=== PATIENT | male | born 1975 | race Caucasian/White ===

== ENCOUNTER 2017-07-29 07:29 | Emergency (ER) | payer OTHER ==
[2017-07-29 07:54] VITALS: BP 110/78
--- NOTE | 2017-07-29 08:03 | UC ---
Abdominal Pain Male HPI - HPI Summary HPI Summary: 42 year old male with concerns of diarrhea. "Feel out of sorts" and diarrhea for two days. 07/25/17 [facility] ED visit for posterior head and neck pain with vision disturbance: IV magnesium and normal CT. 07/28/17: [facility] visit with x-rays for jaw and dental pain for one to two days. He feels he has a dental abscess starting which causes migraines and that has happened in the past. has zomig for migraine and not working great,. no fever. no vomiting. [ End ] - History of Current Complaint Chief Complaint: UCGeneralIllness Stated Complaint: LEFT SIDE GLANDS, DIARRHEA Time Seen by Provider: 07/29/17 07:54 Hx Obtained From: Patient Onset/Duration: Gradual Onset Timing: Constant Severity Initially: Mild Severity Currently: Moderate Pain Intensity: 0 - Allergies/Home Medications Allergies/Adverse Reactions: Allergies Allergy/AdvReac Type Severity Reaction Status Date / Time bupropion [From Wellbutrin] Allergy "Overwhelming Verified 07/29/17 07:46 Panic" fentanyl Allergy Itching Verified 07/29/17 07:46 metoclopramide [From Reglan] Allergy "Overwhelming Verified 07/29/17 07:46 Panic" prochlorperazine Allergy "Overwhelming Verified 07/29/17 07:46 Panic" tomato Allergy Migraines Verified 07/29/17 07:46 Home Medications: Home Medications Acetaminophen [Acetaminophen Extra Strength] 500 - 1,000 mg PO Q6H PRN 07/29/17 [History Confirmed 07/29/17] Ascorbic Acid TAB* [Vitamin C TAB*] 500 mg PO DAILY 07/29/17 [History Confirmed 07/29/17] Citalopram TAB* [CeleXA TAB*] 20 mg PO DAILY 07/29/17 [History Confirmed ] Levothyroxine TAB* [Synthroid TAB*] 100 mcg PO DAILY 07/29/17 [History Confirmed 07/29/17] OLANzapine TAB* [Zyprexa 5 MG TAB*] 5 mg PO BEDTIME 07/29/17 [History Confirmed 07/29/17] Propranolol HCl [Propranolol HCl ER] 160 mg PO DAILY 07/29/17 [History Confirmed 07/29/17] ZOLMitriptan [Zomig] 5 mg PO SEE INSTRUCTIONS PRN 07/29/17 [History Confirmed ] amLODIPine TAB* [Norvasc 5 mg TAB*] 2.5 mg PO DAILY 07/29/17 [History Confirmed 07/29/17] clonazePAM TAB(*) [KlonoPIN TAB(*)] 1 mg PO BID 07/29/17 [History Confirmed ] PMH/Surg Hx/FS Hx/Imm Hx Previously Healthy: Yes Psychological History: Anxiety, Depression, Bipolar Disorder - Surgical History Surgical History: None - Family History Known Family History: Positive: None - Social History Lives: With Family Alcohol Use: None Substance Use Type: Prescribed Smoking Status (MU): Former Smoker When Did the Patient Quit Smoking/Using Tobacco: 2000 - Immunization History Most Recent Influenza Vaccination: 2011 Most Recent Tetanus Shot: 2008 Most Recent Pneumonia Vaccination: none Review of Systems ENT: Dental Pain Neurological: Headache Is Patient Immunocompromised?: No All Other Systems Reviewed And Are Negative: Yes Physical Exam Triage Information Reviewed: Yes Appearance: Well-Appearing, No Pain Distress, Well-Nourished Vital Signs: Initial Vital Signs Temp 98.1 F 07/29/17 07:49 Pulse 76 07/29/17 07:49 Resp 16 07/29/17 07:49 BP 110/78 07/29/17 07:49 Pulse Ox 99 07/29/17 07:49 Vital Signs Reviewed: Yes Eye Exam: Normal ENT Exam: Normal Dental: Positive: Percussion Tenderness @, Gross Decay/Caries @. Negative: Cervical Lymphadenopathy, Bleeding Neck exam: Normal Neck: Positive: 1 Respiratory Exam: Normal Cardiovascular Exam: Normal Musculoskeletal Exam: Normal Neurological Exam: Normal Psychological Exam: Normal Skin Exam: Normal Abd Pain Male Course/Dx - Course Course Of Treatment: migraine : cont with PO intake, zomig, start OTC Mag. dental pain: cont APAP-- motrin causing upset stomach, start amox if sx worsen - - he is aware of risks of amox like GI upset, c diff, etc and he is well aware and will start abx if dental pain worsens / persist and f/u with PCP and dentist - Differential Dx/Clinical Impression Provider Diagnoses: migraine. dental pain / abcess Discharge - Sign-Out/Discharge Documenting (check all that apply): Discharge/Admit/Transfer - Discharge Plan Condition: Good Disposition: HOME Prescriptions: Amoxicillin 500 mg PO TID 7 Days #21 capsule Patient Education Materials: Migraine Headache (ED), Dental Abscess (ED) Referrals: KATHLEEN aFir [Primary Care Provider] - 3 Days Additional Instructions: As we discussed if your dental pain worsens then please start the antibiotics - Billing Disposition and Condition Condition: GOOD Disposition: Home Images Dental: 1 - dental filling. tenderness to palpation. 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
== END 2017-07-29 08:09 | disposition home or self-care (01) ==
LOC: UCCORT 07:29
DX: G43.909 Migraine, unspecified, not intractable, without status migrainosus (principal); K08.89 Other specified disorders of teeth and supporting structures; K04.7 Periapical abscess without sinus; Z88.4 Allergy status to anesthetic agent; Z88.8 Allergy status to other drugs, medicaments and biological substances; Z91.018 Allergy to other foods
CPT/HCPCS: 99212; G0463

== ENCOUNTER 2017-11-08 07:01 | Emergency (ER) | payer OTHER ==
[2017-11-08 07:18] VITALS: BP 107/70
--- NOTE | 2017-11-08 07:32 | UC ---
Dental HPI - HPI Summary HPI Summary: 42-year-old male comes in with a question about a recent tooth extraction. On November 03, 2017 he had a left lower molar extracted due to decay. That tooth had been hurting. The dentist removed it and the patient's been caring for a socket with salt water gargles and eating on the opposite side. Patient noticed that the blood clot that was in the socket was going away. At its pain replaced by white tissue. It is essentially not painful. He called the dentist but there is no dentist available for another 5-6 days and so he came here to clinic to get it evaluated. He is on amoxicillin 500 mg 3 times a day. No fevers feels well otherwise. - History of Current Complaint Chief Complaint: UCDentalProblem Stated Complaint: DENTAL COMP Time Seen by Provider: 11/08/17 07:15 Pain Intensity: 0 - Allergies/Home Medications Allergies/Adverse Reactions: Allergies Allergy/AdvReac Type Severity Reaction Status Date / Time bupropion [From Wellbutrin] Allergy "Overwhelming Verified 11/08/17 07:15 Panic" fentanyl Allergy Itching Verified 11/08/17 07:15 metoclopramide [From Reglan] Allergy "Overwhelming Verified 11/08/17 07:15 Panic" prochlorperazine Allergy "Overwhelming Verified 11/08/17 07:15 Panic" tomato Allergy Migraines Verified 11/08/17 07:15 Home Medications: Home Medications Ibuprofen TAB* [Motrin TAB* 600 MG] 600 mg PO Q6H PRN 11/08/17 [History Confirmed 11/08/17] PMH/Surg Hx/FS Hx/Imm Hx Endocrine History: Thyroid Disease - Surgical History Surgical History: Yes Surgery Procedure, Year, and Place: dental surgery 10/2017 - Family History Known Family History: Positive: None - Social History Alcohol Use: None Substance Use Type: None Smoking Status (MU): Former Smoker When Did the Patient Quit Smoking/Using Tobacco: 2000 - Immunization History Most Recent Influenza Vaccination: 2011 Most Recent Tetanus Shot: 2008 Most Recent Pneumonia Vaccination: none Review of Systems Constitutional: Negative Skin: Negative Eyes: Negative ENT: Dental Pain Respiratory: Negative Cardiovascular: Negative Gastrointestinal: Negative Motor: Negative Neurovascular: Negative Musculoskeletal: Negative Neurological: Negative Psychological: Negative Is Patient Immunocompromised?: No All Other Systems Reviewed And Are Negative: Yes Physical Exam Triage Information Reviewed: Yes Appearance: Well-Appearing, No Pain Distress, Well-Nourished Vital Signs: Initial Vital Signs Temp 97.3 F 11/08/17 07:12 Pulse 73 11/08/17 07:12 Resp 18 11/08/17 07:12 BP 107/70 11/08/17 07:12 Pulse Ox 96 11/08/17 07:12 Vital Signs Reviewed: Yes Eye Exam: Normal Eyes: Positive: Conjunctiva Clear ENT Exam: Normal ENT: Positive: Other - Left lower jaw shows an open socket there is a partial blood clot and some white tissue which appears to be granulation tissue. There is no gingival swelling no drainage. Neck exam: Normal Neck: Positive: Supple Respiratory: Positive: No respiratory distress Musculoskeletal Exam: Normal Musculoskeletal: Positive: Strength Intact, ROM Intact Neurological Exam: Normal Neurological: Positive: Alert Psychological Exam: Normal Psychological: Positive: Normal Response To Family, Age Appropriate Behavior Skin Exam: Normal Dental Complaint Course/Dx - Differential Dx/Diagnosis Provider Diagnoses: TOOTH EXTRACTION Discharge - Sign-Out/Discharge Documenting (check all that apply): Patient Departure All imaging exams completed and their final reports reviewed: No Studies - Discharge Plan Condition: Stable Disposition: HOME Prescriptions: Amoxicillin PO (*) [Amoxicillin 500 MG CAP*] 500 mg PO TID #21 cap Patient Education Materials: Dry Socket (ED), Tooth Extraction (DC) Referrals: Bunny Hager MD [Primary Care Provider] - Additional Instructions: FOLLOW UP WITH YOUR DENTIST. GET RECHECKED FOR ANY WORSENING OF YOUR CONDITION OR QUESTIONS OR CONCERNS. - Billing Disposition and Condition Condition: STABLE Disposition: Home
== END 2017-11-08 07:39 | disposition home or self-care (01) ==
LOC: UCCORT 07:01
DX: Z48.814 Encounter for surgical aftercare following surgery on the teeth or oral cavity (principal); Z87.891 Personal history of nicotine dependence; Z88.8 Allergy status to other drugs, medicaments and biological substances
CPT/HCPCS: 99212; G0463

== ENCOUNTER 2019-05-06 08:52 | Emergency (ER) | payer OTHER ==
[2019-05-06 09:14] VITALS: BP 116/63
--- NOTE | 2019-05-06 10:29 | UC ---
Complaint Male HPI - HPI Summary HPI Summary: 44 y/o male with right testicular pain that is mild. no fever. no trauma. no new sexual encounters. no concern for STD. no discharge or UTI Sx. palpating the area can worsen symptoms and nothing seems to help. been present a few days. - History of Current Complaint Chief Complaint: UCGU Stated Complaint: PERSONAL Time Seen by Provider: 05/06/19 09:40 Hx Obtained From: Patient Onset/Duration: Gradual Onset Pain Intensity: 4 - Risk Factors Testicular Torsion: Negative - Allergies/Home Medications Allergies/Adverse Reactions: Allergies Allergy/AdvReac Type Severity Reaction Status Date / Time bupropion [From Wellbutrin] Allergy "Overwhelming Verified 05/06/19 09:02 Panic" fentanyl Allergy Itching Verified 05/06/19 09:02 metoclopramide [From Reglan] Allergy "Overwhelming Verified 05/06/19 09:02 Panic" prochlorperazine Allergy "Overwhelming Verified 05/06/19 09:02 Panic" tomato Allergy Migraines Verified 05/06/19 09:02 Home Medications: Home Medications Ascorbic Acid TAB* [Vitamin C TAB*] 500 mg PO DAILY 07/29/17 [History Confirmed 05/06/19] Citalopram TAB* [CeleXA TAB*] 20 mg PO DAILY 07/29/17 [History Confirmed ] Levothyroxine TAB* [Synthroid TAB*] 100 mcg PO DAILY 07/29/17 [History Confirmed 05/06/19] OLANzapine TAB* [Zyprexa 5 MG TAB*] 5 mg PO BEDTIME 07/29/17 [History Confirmed 05/06/19] Propranolol HCl [Propranolol HCl ER] 160 mg PO DAILY 07/29/17 [History Confirmed 05/06/19] ZOLMitriptan [Zomig] 5 mg PO SEE INSTRUCTIONS PRN 07/29/17 [History Confirmed ] amLODIPine TAB* [Norvasc 5 mg TAB*] 2.5 mg PO DAILY 07/29/17 [History Confirmed 05/06/19] clonazePAM TAB(*) [KlonoPIN TAB(*)] 1 mg PO BID 07/29/17 [History Confirmed ] Riboflavin (Vitamin B2) [Riboflavin] 100 mg PO BID 05/06/19 [History Confirmed 05/06/19] PMH/Surg Hx/FS Hx/Imm Hx Previously Healthy: Yes Endocrine History: Hypothyroidism Psychological History: Anxiety, Depression - Surgical History Surgical History: Yes Surgery Procedure, Year, and Place: dental surgery 10/2017 - Family History Known Family History: Positive: None - Social History Alcohol Use: None Substance Use Type: None Smoking Status (MU): Former Smoker When Did the Patient Quit Smoking/Using Tobacco: 2000 - Immunization History Most Recent Influenza Vaccination: 2011 Most Recent Tetanus Shot: 2008 Most Recent Pneumonia Vaccination: none Review of Systems All Other Systems Reviewed And Are Negative: Yes Genitourinary: Positive: Other - right testicular pain. Negative: Dysuria, Hematuria, Frequency, Urgency, Vaginal/Penile Burning, Vaginal/Penile Itching, Vaginal/Penile Discharge, Vaginal/Penile Pain, Vaginal/Penile Tenderness, Ulceration/Lesion, Abnormal Bleeding Musculoskeletal: Positive: Negative Physical Exam Triage Information Reviewed: Yes Appearance: Well-Appearing, No Pain Distress, Well-Nourished Vital Signs: Initial Vital Signs Temp 98.3 F 05/06/19 09:05 Pulse 70 05/06/19 09:05 Resp 18 05/06/19 09:05 BP 116/63 05/06/19 09:05 Pulse Ox 97 05/06/19 09:05 Vital Signs Reviewed: Yes Eye Exam: Normal ENT: Positive: Hearing grossly normal Respiratory: Positive: No respiratory distress Abdomen Description: Positive: Nontender Male Genital Exam: Positive: Normal Genitalia, No Hernia, Scrotum Tenderness (R ) - per patient as he performed the exam on himself. Negative: Erythema, Inguinal Tenderness, Lesions Musculoskeletal Exam: Normal Neurological Exam: Normal Psychological Exam: Normal - anxious appearing Skin Exam: Normal Diagnostics - Radiology No standard instances Radiology Interpretation Completed By: Radiologist Summary of Radiographic Findings: neg Complaint Male Course/Dx - Course Course Of Treatment: appears to not be in pain. has discomfort and he wanted to make sure nothing to worry about. neg sono. monitor sx. use APAP and cool cloth prn - Differential Dx/Diagnosis Differential Diagnosis/HQI/PQRI: Epididymitis, Testicular Torsion Provider Diagnosis: Testicular pain, right Discharge ED - Sign-Out/Discharge Documenting (check all that apply): Patient Departure All imaging exams completed and their final reports reviewed: Yes - Discharge Plan Condition: Good Disposition: HOME Patient Education Materials: Testicle Pain (ED) Referrals: Bunny Hager MD [Primary Care Provider] - 3 Days Additional Instructions: If symptoms worsen go to emergency room please - Billing Disposition and Condition Condition: GOOD Disposition: Home
== END 2019-05-06 11:21 | disposition home or self-care (01) ==
LOC: UCCORT 08:52
DX: N50.811 Right testicular pain (principal); I86.1 Scrotal varices; N43.3 Hydrocele, unspecified; E03.9 Hypothyroidism, unspecified; F41.9 Anxiety disorder, unspecified; F32.9 Major depressive disorder, single episode, unspecified; Z79.890 Hormone replacement therapy; Z79.899 Other long term (current) drug therapy; Z88.5 Allergy status to narcotic agent; Z88.8 Allergy status to other drugs, medicaments and biological substances; Z91.018 Allergy to other foods; Z87.891 Personal history of nicotine dependence
CPT/HCPCS: 76870; 99211; G0463